=== PATIENT | female | born 1985 | race Two or more races ===

== ENCOUNTER 2022-08-28 21:49 | Inpatient (IN) | payer BC ==
[~2022-08-28] VITALS: Ht 167.6 cm; Wt 81.6 kg
== END 2022-09-02 16:56 | disposition home or self-care (01) | DRG 392 ==
LOC: ER 21:49 → SEC-K 08-29 13:00 → MEDI 08-29 13:19 → MEDJ 08-31 13:35 → SURH 09-01 07:34
PROVIDERS: ADMIT Internal Medicine; ATTEND Internal Medicine
PROC: 02HV33Z Insertion of Infusion Device into Superior Vena Cava, Percutaneous Approach (ICD-10-PCS; principal; 2022-08-31)
DX: K57.20 Diverticulitis of large intestine with perforation and abscess without bleeding (principal); R10.32 Left lower quadrant pain; Z20.822 Contact with and (suspected) exposure to COVID-19